=== PATIENT | female | born 1980 ===

== ENCOUNTER 2016-06-09 16:02 | Emergency (ER) | payer MEDICAID, OTHER ==
[2016-06-09 16:39] VITALS: BP 137/84; PULSE 105; RESP 18; TEMP 98.4; O2SAT 100
[2016-06-09] MEDS ORDERED: Oxycodone/Acetaminophen 5/325 mg Tab PO STA (17:19)
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
[2016-06-09 17:37] LABS: RBC URINE 1 /hpf (0-3); TRANSITIONAL EPITHIAL < 1 /hpf (0-3); URINE BACTERIA OCC (<OCC); URINE BILIRUBIN NEGATIVE (NEGATIVE); URINE BLOOD NEGATIVE (NEGATIVE); URINE COLOR Yellow (YELLOW); URINE GLUCOSE (UA) NORMAL (Normal); URINE KETONE TRACE mg/dL (NEGATIVE); URINE LEUKOCYTE ESTERASE TRACE Leu/uL (Negative); URINE PROTEIN 1+ mg/dL (NEGATIVE); URINE UROBILINOGEN NORMAL mg/dL (0.2-1.0); WBC URINE 7 /hpf (0-5)
[2016-06-09] MEDS ORDERED: Oxycodone/Acetaminophen 5/325 mg Tab ONE (18:16)
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
== END 2016-06-09 19:11 | disposition short-term general hospital (02) ==
LOC: C.ER 16:02
DX: S20.212A Contusion of left front wall of thorax, initial encounter (principal); Y08.89XA Assault by other specified means, initial encounter

== ENCOUNTER 2016-07-25 13:32 | Emergency (ER) | payer OTHER, MEDICAID ==
[2016-07-25 14:54] LABS: RBC URINE 41 /hpf (0-3); URINE BILIRUBIN NEGATIVE (NEGATIVE); URINE BLOOD 3+ (NEGATIVE); URINE COLOR Yellow (YELLOW); URINE GLUCOSE (UA) NORMAL (Normal); URINE KETONE TRACE mg/dL (NEGATIVE); URINE LEUKOCYTE ESTERASE TRACE Leu/uL (Negative); URINE PROTEIN 2+ mg/dL (NEGATIVE); URINE UROBILINOGEN NORMAL mg/dL (0.2-1.0); WBC URINE 10 /hpf (0-5)
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
[2016-07-25 15:58] VITALS: RESP 18; TEMP 98.4
[2016-07-25 16:35] VITALS: BP 118/65; PULSE 78; O2SAT 98
== END 2016-07-25 16:36 | disposition home or self-care (01) ==
LOC: C.ER 13:32
DX: M54.12 Radiculopathy, cervical region (principal); M54.9 Dorsalgia, unspecified

== ENCOUNTER 2016-08-02 16:15 | Emergency (ER) | payer OTHER, MEDICAID ==
[2016-08-02] MEDS ORDERED: Oxycodone/Acetaminophen 5/325 mg Tab PO STA (16:58)
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
[2016-08-02] MEDS ORDERED: Oxycodone/Acetaminophen 5/325 mg Tab ONE (17:06)
[2016-08-02 17:52] VITALS: BP 124/75; PULSE 84; RESP 18; TEMP 98.2
[2016-08-02 18:05] VITALS: O2SAT 97
== END 2016-08-02 17:45 | disposition home or self-care (01) ==
LOC: C.ER 16:15
DX: G43.909 Migraine, unspecified, not intractable, without status migrainosus (principal); S16.1XXD Strain of muscle, fascia and tendon at neck level, subsequent encounter; V89.2XXD Person injured in unspecified motor-vehicle accident, traffic, subsequent encounter; M54.40 Lumbago with sciatica, unspecified side

== ENCOUNTER → 2017-04-09 | Emergency (ER) | payer MEDICAID ==
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
[2017-04-09 17:12] LABS: HCG,QUALITATIVE URINE NEGATIVE (NEGATIVE)
[2017-04-09 17:20] LABS: SQUAMOUS EPITHIAL 5 /hpf (0-5); URINE BACTERIA FEW (<OCC); URINE BILIRUBIN NEGATIVE (NEGATIVE); URINE BLOOD 3+ (NEGATIVE); URINE CLARITY Hazy (Clear); URINE COLOR Red (YELLOW); URINE GLUCOSE (UA) 1+ mg/dL (Normal); URINE LEUKOCYTE ESTERASE 2+ Leu/uL (Negative); URINE NITRATE NEGATIVE (NEGATIVE); URINE PROTEIN 2+ mg/dL (NEGATIVE); URINE UROBILINOGEN NORMAL mg/dL (0.2-1.0); WBC CLUMPS MANY /hpf
[2017-04-09 17:27] LABS: BASO # 0.1 K/uL (0.0-0.2); BASO % 0.8 % (0.0-2.0); EOS % 0.2 % (0.0-4.0); LYMPH % 15.8 % (20.0-40.0); MEAN CELL VOLUME 91.4 fL (81.0-99.0); MEAN CORPUSCULAR HEMOGLOBIN 31.1 pg (27.0-31.0); MEAN PLATELET VOLUME 8.3 fL (7.2-11.7); MONO # 0.6 K/uL (0.0-0.8); MONO % 4.8 % (0.0-10.0); NEUT % 78.4 % (50.0-75.0); RBC 4.41 Mil/uL (3.80-5.20); RED CELL DISTRIBUTION WIDTH 13.7 % (11.5-14.5)
[2017-04-09 17:35] LABS: HEMOGLOBIN 13.7 g/dL (11.0-16.0); WHITE BLOOD COUNT 12.8 K/uL (4.8-10.8)
[2017-04-09 17:40] LABS: ALB/GLOB RATIO 1.2 (1.0-2.1); ALBUMIN 4.2 g/dL (3.5-5.0); ALT/SGPT 28 U/L (9-52); AST/SGOT 33 U/L (14-36); BLOOD UREA NITROGEN 7 mg/dL (7-17); CALCIUM 8.7 mg/dl (8.6-10.4); GFR AFRICAN-AMERICAN > 60; GFR NON-AFRICAN AMERICAN > 60
[2017-04-09 19:30] VITALS: BP 115/83; PULSE 73; RESP 16; TEMP 98.4; O2SAT 99
--- NOTE | 2017-04-09 19:57 | US ---
EXAM: US First Trimester, Transabdominal CLINICAL HISTORY: 36 years old, female; Signs and symptoms; Other: Bleeding; Additional info: vaginal bleeding TECHNIQUE: Real-time transabdominal obstetrical ultrasound of the maternal pelvis and a first trimester with image documentation. COMPARISON: No relevant prior studies available. FINDINGS: Gestation: No intrauterine gestational sac. Uterus/cervix: Endometrium: 1.1 cm in thickness. Closed cervix. Ovaries: Normal ovaries. No adnexal masses. Free fluid: No significant free fluid. IMPRESSION: 1. No intrauterine gestation. DDX: Early IUP, missed , ectopic . EXAM: US , Transvaginal CLINICAL HISTORY: 36 years old, female; Signs and symptoms; Other: Bleeding; Additional info: vaginal bleeding TECHNIQUE: Real-time transvaginal obstetrical ultrasound of the maternal pelvis and a first trimester with image documentation. Transvaginal imaging was used for better evaluation of the fetus and adnexa. COMPARISON: No relevant prior studies available. FINDINGS: Gestation: No intrauterine gestational sac. Uterus/cervix: Endometrium: 1.1 cm in thickness. Closed cervix. Ovaries: Normal ovaries. No adnexal masses. Free fluid: No significant free fluid.
== END | disposition left against medical advice (07) ==
LOC: C.ER 15:59
DX: O03.9 Complete or unspecified spontaneous abortion without complication (principal); O03.88 Urinary tract infection following complete or unspecified spontaneous abortion
CPT/HCPCS: 76830; 80053; 81001; 84702; 84703; 85025; 86850; 86900; 96374; 99285; J2270

== ENCOUNTER 2017-08-25 10:49 | Emergency (ER) | payer MEDICAID ==
[2017-08-25 11:08] VITALS: O2SAT 100
--- NOTE | 2017-08-25 13:22 | C.PDOC ---
History Of Present Illness 37 y/o female, w/PMhx of Multiple Sclerosis, presents to the ER c/o multiple sclerosis exacerbation x 2 -3 weeks. Pt has intermittent facial numbness and her hands and legs feel " disconnected' and numb. Pt reports symptoms are interfering with her ability to work. Pt has been diagnosed with Multiple Sclerosis and she is currently taking Imuran 50 mg and Prednisone 10 TID. She had a neurologist in [place] and she is pending evaluation with a new neurologist at [facility]. Denies having fever, visual changes. Pt is also c/o left- sided sciatica x 4 dys. Pt notes current pain is similar but more intense compared to her prior symptoms. The pain radiates down the left buttock and thigh. She took Ultram PRN and Flexeril w/no relief. Time Seen by Provider: 08/25/17 13:06 Chief Complaint (Nursing): Weakness/Neurological Deficit History Per: Patient History/Exam Limitations: no limitations Onset/Duration Of Symptoms: Days Current Symptoms Are (Timing): Still Present Severity: Moderate Past Medical History Reviewed: Historical Data, Nursing Documentation, Vital Signs Vital Signs: Last Vital Signs Temp 98.6 F 08/25/17 11:06 Pulse 110 H 08/25/17 11:06 Resp 20 08/25/17 11:37 BP 106/75 08/25/17 11:06 Pulse Ox 100 08/25/17 14:20 - Medical History PMH: Anxiety, Arthritis, Back Problems, Multiple Sclerosis, Rheumatoid Arthritis , Seizures Surgical History: (x1) - [facility] IMMOBILIZ/WOUND ATTN NEC (11/25/12) INJECT/INFUSE NEC (02/20/13) Family History: States: Unknown Family Hx - Social History Hx Tobacco Use: Yes Hx Alcohol Use: No Hx Substance Use: No - Immunization History Hx Tetanus Toxoid Vaccination: No Hx Influenza Vaccination: Yes Hx Pneumococcal Vaccination: Yes Review Of Systems Except As Marked, All Systems Reviewed And Found Negative. Constitutional: Negative for: Fever, Chills Eyes: Negative for: Vision Change Neurological: Positive for: Numbness Physical Exam - Physical Exam Appears: Non-toxic, Other (mild distress) Skin: Normal Color, Warm, Dry Head: Atraumatic, Normacephalic Eye(s): bilateral: Normal Inspection Chest: Other (NARD) Cardiovascular: Rhythm Regular Respiratory: Normal Breath Sounds, No Rales, No Rhonchi, No Wheezing Gastrointestinal/Abdominal: Normal Exam, Soft, No Tenderness, No Guarding, No Rebound Back: No CVA Tenderness, No Paraspinal Tenderness Neurological/Psych: Oriented x3, Normal Speech Gait: Other (limited due to back pain) ED Course And Treatment O2 Sat by Pulse Oximetry: 100 (RA) Pulse Ox Interpretation: Normal Progress - Re-Evaluation Re-evaluation Note: 08/25/17 14:03 D/W DR SHAFFER: ADVISES 1 DOSE SOLUMEDROL 1 GM AND 1 DOSE IMURAN, DC HOME. OR ADMISSION FOR 3 DAYS STEROID. PT OFFERED ADMISSION, REFUSES AT THIS TIME. 08/25/17 14:17 D/W DR JOJO BHATT ADVISES NORCO 10/325 TID PRN. 08/25/17 16:40 IMPROVED COMPARED TO INITIAL. NEURO APPT @ [facility] IN 1 WEEK 08/25/17 16:41 - Data Reviewed Data Reviewed: Old records Disposition Counseled Patient/Family Regarding: Diagnosis, Need For Followup, Rx Given - Disposition Referrals: YOUR,NEUROLOGIST [Other] Disposition: HOME/ ROUTINE Disposition Time: 16:41 Condition: IMPROVED Prescriptions: Hydrocodone/Acetaminophen [[place] 325 mg-5 mg] 2 tab PO TID #20 tab Instructions: Multiple Sclerosis, Adult (DC), Sciatica (DC) Forms: [facility] (Iranian), Work Excuse - Clinical Impression Clinical Impression: Sciatica, Multiple sclerosis exacerbation - Scribe Statement The provider has reviewed the documentation as recorded by the Kat Clifton Provider Attestation: All medical record entries made by the Kat were at my direction and personally dictated by me. I have reviewed the chart and agree that the record accurately reflects my personal performance of the history, physical exam, medical decision making, and the department course for this patient. I have also personally directed, reviewed, and agree with the discharge instructions and disposition.
[2017-08-25] MEDS ORDERED: methylPREDNISolone 1 GM in Sodium Chloride 0.9% 250 ML IV ONE (14:45)
[2017-08-25 17:02] VITALS: BP 118/83; PULSE 86; RESP 16; TEMP 98.4
== END 2017-08-25 17:06 | disposition home or self-care (01) ==
LOC: C.ER 10:49
DX: G35 Multiple sclerosis (principal); M54.32 Sciatica, left side
CPT/HCPCS: 96365; 99285; J2930